=== PATIENT | female | born 1975 | race Caucasian/White ===

== ENCOUNTER 2020-11-12 20:05 | Emergency (ER) | payer OTHER ==
[2020-11-12] MEDS ORDERED: DICLOFENAC SODI75 MG PO (22:37)
== END 2020-11-12 22:40 | disposition home or self-care (01) ==
LOC: FER 20:05
DX: S06.0X0A Concussion without loss of consciousness, initial encounter (principal); W00.0XXA Fall on same level due to ice and snow, initial encounter; Y92.89 Other specified places as the place of occurrence of the external cause; Y99.0 Civilian activity done for income or pay
CPT/HCPCS: 70450; J0780; J1885